=== PATIENT | male | born 1970 | race Two or more races ===

== ENCOUNTER 2017-04-06 13:47 | Outpatient (CLI) | payer OTHER | END 2017-04-06 13:48 | disposition home or self-care (01) | LOC: SC 13:47 | PROVIDERS: ATTEND Internal Medicine Pulmonary Disease | DX: G47.10 Hypersomnia, unspecified (principal); G47.8 Other sleep disorders; R06.83 Snoring; G47.00 Insomnia, unspecified | CPT/HCPCS: 99203; 99212 ==

== ENCOUNTER 2017-06-11 22:24 | Outpatient (CLI) | payer OTHER | END 2017-06-11 22:25 | disposition home or self-care (01) | LOC: SC 22:24 | PROVIDERS: ATTEND Internal Medicine Pulmonary Disease | DX: G47.10 Hypersomnia, unspecified (principal) | CPT/HCPCS: 95810 ==

== ENCOUNTER 2017-08-03 09:12 | Outpatient (CLI) | payer OTHER | END 2017-08-03 09:13 | disposition home or self-care (01) | LOC: SC 09:12 | PROVIDERS: ATTEND Nurse Practitioner Family | DX: R06.83 Snoring (principal) | CPT/HCPCS: 99212; 99214 ==

== ENCOUNTER 2017-09-14 09:56 | Outpatient (CLI) | payer OTHER | END 2017-09-14 09:57 | disposition home or self-care (01) | LOC: SC 09:56 | PROVIDERS: ATTEND Nurse Practitioner Family | DX: R53.83 Other fatigue (principal); R06.83 Snoring | CPT/HCPCS: 99212; 99213 ==

== ENCOUNTER 2017-12-04 08:46 | Day surgery (SDC) | payer OTHER ==
[~2017-12-04 08:46] MED LIST: BUPIVACAINE 0.5%-EPI 1:200000 PF 30 ML VIAL ONE; ceFAZolin 2 GM/50 ML 2 GM/50 ML BAG IV ONE
[2017-12-04] MEDS ORDERED: LACTATED RINGERS 1,000 ML IV ONE (08:50)
[2017-12-04] MEDS ORDERED: BUPIVACAINE 0.5%-EPI 1:200000 PF 30 ML VIAL SUBQ ONE ×2 (10:01)
[2017-12-04] MEDS ORDERED: DEXAMETHASONE 4 MG/ML VIAL IVP ONE (10:15)
[2017-12-04] MEDS ORDERED: MIDAZOLAM 2 MG/2 ML VIAL IVP ONE (10:15)
[2017-12-04] MEDS ORDERED: LIDOCAINE-MPF 2% 5 ML VIAL IM ONE (10:15)
[2017-12-04] MEDS ORDERED: PROPOFOL 200 MG/20 ML VIAL IVP ONE (10:15)
[2017-12-04] MEDS ORDERED: KETOROLAC 30 MG/ML VIAL IVP ONE (10:15)
[2017-12-04] MEDS ORDERED: ONDANSETRON 4 MG/2 ML VIAL IVP ONE (10:15)
[2017-12-04] MEDS ORDERED: fentaNYL 250 MCG/5 ML VIAL IVP ONE (10:15)
[2017-12-04] MEDS: HYDROcod/ACETAM 5/325 MG TABLET ONE ×2 (11:20→11:30)
[2017-12-04 11:46] VITALS: BP 127/87
--- NOTE | 2017-12-07 08:23 | OPERATIVE REPORT ---
DATE OF SERVICE: 12/04/2017 Physician: Daron Perez MD PREOPERATIVE DIAGNOSIS: Incarcerated recurrent ventral incisional hernia. POSTOPERATIVE DIAGNOSIS: Incarcerated recurrent ventral incisional hernia. PROCEDURE PERFORMED: Repair of incarcerated recurrent ventral incisional hernia OPERATING SURGEON: Daron Perez M.D. ANESTHESIA: General. INDICATIONS FOR PROCEDURE: The patient is a 47-year-old male who had previously underwent repair of an umbilical hernia doing a laparoscopic cholecystectomy. He has now been having pain and swelling in the umbilical area where he had the previous surgery. On physical exam, he has an incarcerated ventral incisional hernia. FINDINGS AT SURGERY: The patient had incarcerated ventral incisional hernia containing preperitoneal fat. The hernia defect measured approximately 1.5 cm. It was repaired with Ventralex mesh. DESCRIPTION OF PROCEDURE: After informed consent was obtained, the patient was taken to the operating room and placed in supine position. General endotracheal anesthesia was administered. Prior to making any incision in the skin, it was first injected with local anesthesia. A circumumbilical incision was then made in the skin on the left side of the umbilical defect. This incision was then carried down to the hernia sac. This was then opened with the sac being preperitoneal fat. The hernia sac was then trimmed down to the fascial defect. I then attempted to dissect the fascia off of the preperitoneal fat, but was unable to do so. Because this is a recurrent hernia, I had recommended that the hernia be repaired with mesh. A circular Ventralex mesh was then placed through the defect and into abdominal cavity with the coated side against the intra-abdominal contents. This mesh covered the defect at least 4 cm circumferentially. There was 2 petals to the mesh. Transfascial fixation sutures using 0 Prolene sutures were placed through the fascia, through one of the straps and back out through the fascia. This was, as stated, done for the 2 straps. The straps were then divided to just below the fascial edge. The sutures were tied. Interrupted 0 PDS sutures were then used to close the fascial defect covering the mesh. The umbilicus, which had been taken off the hernia was then tied back down to the fascia using 3-0 Vicryl suture. The skin incision was closed using 4-0 Monocryl subcuticular stitch. Dermabond was then applied. The patient was then awakened, extubated, and taken from the operating room in stable condition. ESTIMATED BLOOD LOSS: Minimal. COMPLICATIONS: None. CONDITION OF THE PATIENT AT END OF PROCEDURE: Stable. DRAINS, PACKS: None. CLASSIFICATION OF WOUND: Clean. TD: 12/07/2017 00:08 KELSI
== END 2017-12-04 08:47 | disposition home or self-care (01) ==
LOC: SDS 08:46
PROVIDERS: ATTEND Surgery
PROC: 0WUF0JZ Supplement Abdominal Wall with Synthetic Substitute, Open Approach (ICD-10-PCS; principal; 2017-12-04 09:45)
DX: K43.0 Incisional hernia with obstruction, without gangrene (principal); I10 Essential (primary) hypertension; K21.9 Gastro-esophageal reflux disease without esophagitis
CPT/HCPCS: 49566; 49568; A9270; C1781; J0690; J3010; J7120

== ENCOUNTER 2018-11-24 09:26 | Outpatient (CLI) | payer OTHER ==
--- NOTE | 2018-11-24 15:50 | MRI Report ---
Reason: LOW BACK PAIN Procedure Date: 11/24/2018 Accession Number: [id number] / [id number] Procedure: MRI - Lumbar Spine W/O CPT Code: FULL RESULT: EXAM: MRI LUMBAR SPINE WITHOUT CONTRAST EXAM DATE: 11/24/2018 10:30 AM. CLINICAL HISTORY: LOW BACK PAIN. COMPARISON: None. TECHNIQUE: Multiplanar, multisequence T1-weighted and fluid-sensitive sequences of the lumbar spine from T12 to S1 without contrast. Other: None. FINDINGS: Numbering assumes 5 [id number] lumbar type vertebral bodies. No suspicious marrow replacement is seen. No abnormal signal seen in the conus medullaris. Disk space height is preserved. L1 through L4: No posterior disk protrusion. L4-L5: Patchy T2 hypointense signal is seen in the disk space. There is a posterior annular fissure. A posterior bulge of the annulus is present without stenosis. L5-S1: Grade 1 retrolisthesis of L5 relative to S1 is noted. A mild broad-based posterior disk protrusion is seen. Disk material extends into the inferior aspect of the right foramen. No central canal or foraminal stenosis is present. Patchy T2 hypointense signal seen in the disk space. IMPRESSION: 1. Degenerative disk disease at L4-L5 and L5-S1. 2. There is a broad-based posterior disk protrusion at L5-S1 with disk material extending into the inferior aspect of the right foramen. No central canal or foraminal stenosis is present. 3. A posterior bulge of the annulus is present at L4-L5 with a posterior annular fissure. 4. Grade 1 retrolisthesis of L5 relative to S1 is noted. Comment: The following findings are so common in adults without low back pain that while we report their presence, they must be interpreted with caution and in the context of the clinical situation. (Reference Min et al, Spine 2001) Prevalence of findings in patients without low back pain: Disk degeneration (any evidence): 92% Disk desiccation/T2 signal loss: 83% Disk height loss: 56% Disk bulge: 64% Disk protrusion: 32% Annular tear/high intensity zone: 38% RADIA
== END 2018-11-24 09:27 | disposition home or self-care (01) ==
LOC: DI 09:26
PROVIDERS: ATTEND Student in an Organized Health Care Education/Training Program
DX: M51.36 Other intervertebral disc degeneration, lumbar region (principal); M51.27 Other intervertebral disc displacement, lumbosacral region; M43.17 Spondylolisthesis, lumbosacral region
CPT/HCPCS: 72148